=== PATIENT | female | born 1970 | race Two or more races ===

== ENCOUNTER 2024-08-13 06:37 | Day surgery (SDC) | payer OTHER ==
[2024-08-12 13:00] VITALS: BP 123/82
[~2024-08-13] VITALS: Ht 175.3 cm; Wt 87.1 kg
[~2024-08-13 06:37] MED LIST: ALER-CAP25 MG PO; BREO ELLIPTA 21 EACH IH; DUPIXENT P300 MG/2 M; LEVOTHYROXINE25 MCG PO; PROAIR RESPICL90 MCG IH
[2024-08-13] MEDS ORDERED: CEFAZOLIN SODIUM 1,000 MG VIAL ONE (14:24)
== END 2024-08-13 20:20 | disposition home or self-care (01) ==
LOC: CIR.AMB 06:37
PROVIDERS: ATTEND Surgery
DX: D48.62 Neoplasm of uncertain behavior of left breast (principal); D24.2 Benign neoplasm of left breast; R92.1 Mammographic calcification found on diagnostic imaging of breast; Z91.02 Food additives allergy status; Z91.040 Latex allergy status; Z91.09 Other allergy status, other than to drugs and biological substances; J45.909 Unspecified asthma, uncomplicated; E03.8 Other specified hypothyroidism; J32.9 Chronic sinusitis, unspecified